=== PATIENT | female | born 1990 | race African-American/Black ===

== ENCOUNTER 2018-08-02 01:02 | Emergency (ER) | payer SELFPAY ==
[~2018-08-02] VITALS: Ht 165.1 cm; Wt 77.1 kg
[2018-08-02 01:10] VITALS: BP 125/83
[2018-08-02] MEDS ORDERED: ACETAMINOPHEN 500 MG TABLET PO ONE (02:00)
[2018-08-02] MEDS ORDERED: HYDR-3164 PO (02:33)
--- NOTE | 2018-08-02 06:47 | PHYS DOC ---
Past Medical History Past Medical History: No Pertinent History Past Surgical History: No Surgical History Alcohol Use: None Drug Use: Marijuana Adult General Chief Complaint Chief Complaint: THUMB HPI HPI Patient is a 27 year old female who is slammed a door on her finger pain moderate severe nonradiating Current Medications Current Medications Current Medications Medications (Trade) Dose Ordered Sig/Lb Start Time Stop Time Status Last Admin Dose Admin Acetaminophen (Tylenol) 1,000 mg 1X ONCE 08/02/18 02:00 08/02/18 02:01 DC 08/02/18 02:09 1,000 MG Allergies Allergies Allergies Coded Allergies Type Severity Reaction Last Updated Verified Unable to Assess 08/02/18 No Physical Exam Physical Exam Constitutional: Well developed, well nourished, no acute distress, non-toxic appearance. [] HENT: Normocephalic, atraumatic, bilateral external ears normal, oropharynx moist, no oral exudates, nose normal. [] Eyes: PERRLA, EOMI, conjunctiva normal, no discharge. [] Neck: Normal range of motion, no tenderness, supple, no stridor. [] Back: No tenderness, no CVA tenderness. [] Extremities: There is swelling and ecchymosis noted to the distal tip of the thumb patient has acrylic nails was limits evaluation of the nailbed but the growth plate of the nail bed appeared intact Neurologic: Alert and oriented X 3, normal motor function, normal sensory function, no focal deficits noted. [] Psychologic: Affect normal, judgement normal, mood normal. [] Current Patient Data Vital Signs Vital Signs Date Time Temp Pulse Resp B/P (MAP) Pulse Ox O2 Delivery O2 Flow Rate FiO2 08/02/18 01:10 97.8 77 17 125/83 (97) 100 Room Air 97.8 EKG EKG [] Radiology/Procedures Radiology/Procedures [] Course & Med Decision Making Course & Med Decision Making Pertinent Labs and Imaging studies reviewed. (See chart for details) []Distal tuft fracture finger splint was obtained patient tolerated well given pain control and to follow-up with orthopedics likely nonoperative Dragon Disclaimer Dragon Disclaimer This electronic medical record was generated, in whole or in part, using a voice recognition dictation system. Departure Departure Impression: Primary Impression: Thumb injury Disposition: HOME, SELF-CARE Condition: STABLE Referrals: GIL WILSON MD Patient Instructions: Thumb Fracture Scripts Hydrocodone/Apap 5-325 (NORCO 5-325 TABLET) 1 Each Tablet 1-2 EACH PO PRN Q6HRS PRN for PAIN, #10 as needed for pain Prov: SAYDA PERRY MD 08/02/18 SAYDA PERRY MD August 02, 2018 06:47
--- NOTE | 2018-08-02 08:29 | RAD ---
Examination: 3 views of the left hand HISTORY: History of thumb pain COMPARISON: None available. FINDINGS: The alignment of the metacarpophalangeal joints, interphalangeal joints grossly appears unremarkable. There is minimal displaced transverse fracture of the midshaft of the distal phalanx of the thumb. IMPRESSION: Minimal displaced transverse fracture of the midshaft of the distal phalanx of the thumb Electronically signed by: Padilla Arevalo MD (08/02/2018 8:26 AM) [id number]
== END 2018-08-02 03:03 | disposition home or self-care (01) ==
LOC: ER 01:02
DX: S62.522A Displaced fracture of distal phalanx of left thumb, initial encounter for closed fracture (principal); W23.0XXA Caught, crushed, jammed, or pinched between moving objects, initial encounter; Y93.89 Activity, other specified; Y92.89 Other specified places as the place of occurrence of the external cause; Y99.8 Other external cause status
CPT/HCPCS: 29125; 73130; 99284